=== PATIENT | female | born 1955 | race Caucasian/White ===

== ENCOUNTER 2020-07-22 04:31 | Emergency (ER) | payer MEDICARE ==
[2020-07-22 05:13] LABS: CREATININE 0.7 mg/dL (0.5-1.5); POTASSIUM 4.8 mmol/L (3.5-5.1)
[2020-07-22 05:15] LABS: BASOPHILS % (AUTO) 0.2 % (0.0-5.0); EOSINOPHILS % (AUTO) 0.9 % (0.0-8.0); HEMATOCRIT 40.2 % (36-48); LYMPHOCYTES % (AUTO) 11.4 % (21.0-51.0); MEAN CORPUSCULAR HEMOGLOBIN 30.5 pg (27.0-33.0); MEAN CORPUSCULAR HGB CONC 32.6 g/dL (32.0-36.0); MEAN CORPUSCULAR VOLUME 93.5 fL (79-99); MONOCYTES % (AUTO) 4.8 % (3.0-13.0); NEUTROPHILS % (AUTO) 82.5 % (40.0-77.0); PLATELET COUNT (AUTO) 240 K/uL (130-400); RED CELL DISTRIBUTION WIDTH 12.6 % (11.0-15.5); WHITE BLOOD COUNT (AUTO) 8.5 K/uL (4.8-10.8)
[2020-07-22 05:18] LABS: BILIRUBIN,TOTAL 0.4 mg/dL (0.2-1.0); TOTAL PROTEIN, SERUM 7.5 g/dL (6.0-8.3)
[2020-07-22 05:25] LABS: INR 0.89 (0.85-1.15); PARTIAL THROMBOPLASTIN TIME 23.9 SEC (26.3-35.5); PROTHROMBIN TIME 9.7 SEC (9.6-11.6)
[2020-07-22 05:26] LABS: CREATINE KINASE, TOTAL 116 U/L (21-232); MYOGLOBIN 29 ng/mL (10-92); TROPONIN I < 0.04 ng/mL (0.00-0.06)
[2020-07-22] MEDS ORDERED: MORPHINE SULFATE 5 MG/ML VIAL ONE (05:53)
[2020-07-22] MEDS ORDERED: PROMETHAZINE HCL 25 MG/ML 1ML AMPULE IM ONE (12:00)
== END 2020-07-22 06:58 | disposition home or self-care (01) ==
LOC: EDH 04:31
DX: K80.80 Other cholelithiasis without obstruction (principal)
CPT/HCPCS: 36415; 71045; 76705; 80053; 82550; 83874; 84484; 85025; 85610; 85730; 93005; 96372; 96374; 99285; J2270; J2550

== ENCOUNTER → 2022-06-01 | Outpatient (CLI) | payer MEDICARE ==
[2022-06-01 13:02] LABS: ALBUMIN 3.9 g/dL (3.5-5.0); CREATININE 0.8 mg/dL (0.5-1.5); POTASSIUM 4.4 mmol/L (3.5-5.1); TOTAL PROTEIN, SERUM 7.4 g/dL (6.0-8.3)
== END | disposition home or self-care (01) ==
LOC: LAB 09:38
PROVIDERS: ATTEND Internal Medicine Cardiovascular Disease
DX: E78.5 Hyperlipidemia, unspecified (principal)
CPT/HCPCS: 36415; 80053; 80061

== ENCOUNTER 2024-09-16 06:13 | Emergency (ER) | payer MEDICARE ==
[~2024-09-16] VITALS: Ht 167.6 cm; Wt 76.2 kg
--- NOTE | 2024-09-16 06:31 | NUR ---
PT REACTION TO SEA FOOD IS , GBW, COLD SWEATS, FEVER. DENIES RASH, HIVES, SOB OR BREATHING ISSUES. DENIES ER VISIT AFTER REACTION TO SEA FOOD, OR EPI PEN. PT HAS NEVER HAD IV CONTRAST BEFORE, WAS TOLD DUE TO " ILLNESS" FROM SEA FOOD " NEVER TO HAVE IODINE IN YOU" PER PCP. DR SMITH AWARE
--- NOTE | 2024-09-16 06:43 | ERN ---
General Chief Complaint: Other Problems Stated Complaint: SWELLING TO NECK Time Seen by MD: 06:15 History of Present Illness Initial Comments Mrs Mora is a 69-year-old female with no significant past medical history who presents today with a chief complaint of right neck pain. Patient reports for the last 2 days she has had increased neck swelling. Patient reports she has not neck pain associated with palpation. She does not have any swollen on the left side. Allergies: Coded Allergies: iodine (Unverified Allergy, Unknown, 09/16/24) Uncoded Allergies: SEAFOOD (Allergy, Unknown, 09/16/24) Home Meds Active Scripts Clindamycin HCl (Clindamycin HCl) 300 Mg Capsule, 1 CAP PO QID for 7 Days, #28 C AP 0 Refills Prov:ZAHIDA FLETCHER MD 09/16/24 Past Medical History Past Medical History: High Cholesterol Past Surgical History: Cholecystectomy, Other Surgical History Other: THYROID ROS Dictation Constitutional: Negative for fever,chills, and weight loss Eyes: Negative for injury, pain,redness, and discharge ENT: Right neck swelling Cardiovascular: Negative for chest pain, palpitations, and edema Respiratory: Negative for shortness of breath, cough, and wheezing, Abdomen/GI: Negative for abdominal pain, nausea, vomiting, diarrhea, and constipation Back: Negative for injury and pain : Negative for injury, bleeding and discharge MS/Extremity: Negative for injury and deformity Skin: Negative for rash, and discoloration Neuro: Negative for headache, weakness, numbness, tingling, and seizure Psych: Negative for suicide ideation, homicidal ideation, and hallucinations Physical Exam Physical Exam Dictation General: awake, alert, NAD Head/Face: Normocephalic, atraumatic Eyes: PERRL, EOMI, vision at baseline ENT: Right neck swelling and painful to palpation. Neck: Trachea midline, supple Cardiovascular: RRR, normal S1/S2, No MRGs, no JVD Respiratory: CTAB, no respiratory distress, No rales or wheezes Abdomen: Soft, non-tender, non-distended, Skin: Warm, dry, normal turgor, no rash MS/Extremity: Pulses equal, no cyanosis, Neuro: COAx4, GCS 15, strength 5/5, CN 2-12 intact, Results Laboratory and Microbiology Lab and Micro Result Laboratory Tests Test 09/16/24 06:39 White Blood Count 5.5 K/uL (4.8-10.8) Red Blood Count 4.04 MIL/uL (4.00-5.50) Hemoglobin 13.0 g/dL (12.0-16.0) Hematocrit 38.3 % (36-48) Mean Corpuscular Volume 94.8 fL (79-99) Mean Corpuscular Hemoglobin 32.2 pg (27.0-33.0) Mean Corpuscular Hemoglobin Concent 33.9 g/dL (32.0-36.0) Red Cell Distribution Width 12.2 % (11.0-15.5) Platelet Count 215 K/uL (130-400) Mean Platelet Volume 10.4 fL (7.5-10.5) Immature Granulocyte % (Auto) 0.2 % (0-1) Neutrophils (%) (Auto) 63.6 % (40.0-77.0) Lymphocytes (%) (Auto) 27.0 % (21.0-51.0) Monocytes (%) (Auto) 6.9 % (3.0-13.0) Eosinophils (%) (Auto) 1.8 % (0.0-8.0) Basophils (%) (Auto) 0.5 % (0.0-5.0) Neutrophils # (Auto) 3.5 K/uL (1.8-7.7) Lymphocytes # (Auto) 1.5 K/uL (1.0-4.8) Monocytes # (Auto) 0.4 K/uL (0.1-1.0) Eosinophils # (Auto) 0.10 K/uL (0.00-0.70) Basophils # (Auto) 0.03 K/uL (0.00-0.20) Absolute Immature Granulocyte (auto 0.01 K/uL (0-1) Nucleated Red Blood Cells 0.0 % (0.0-0.19) Sodium Level 146 mmol/L (136-145) H Potassium Level 4.0 mmol/L (3.5-5.1) Chloride Level 109 mmol/L (101-111) Carbon Dioxide Level 33 mmol/L (21-32) H Blood Urea Nitrogen 10 mg/dL (7-18) Creatinine 0.8 mg/dL (0.5-1.0) Glomerular Filtration Rate Calc 79 mL/min (>90) Random Glucose 88 mg/dL (70-105) Total Calcium 8.8 mg/dL (8.5-10.1) Total Bilirubin 0.6 mg/dL (0.2-1.0) Aspartate Amino Transf (AST/SGOT) 16 U/L (10-37) Alanine Aminotransferase (ALT/SGPT) 17 U/L (12-78) Alkaline Phosphatase 81 U/L (50-136) Total Protein 6.5 g/dL (6.0-8.3) Albumin 3.5 g/dL (3.5-5.0) Labs Reviewed?: Yes MDM MDM: Differential diagnosis: Facial cellulitis, submandibular duct obstruction Previous outside records reviewed: Old ER visits. Need for hospitalization: Patient does not meet criteria for hospitalization. Need for emergency major/minor surgery: No Patient's prior external medical records from other ER visits were reviewed by me as indicated. Prior testing and results from previous visits were reviewed. Prior tests were taken into account with medical decision making and resource utilization, independent historian/historians were used to obtain complete medical history. I independently interpreted the test that were performed, results were reviewed by me and considered findings on radiology if ordered. Medical management and examination interpretation discussions were had by me with other qualified healthcare professionals as indicated for the patient's care. ED Course Orders Procedure Category Date Status Time Cbc With Differential LAB 09/16/24 Complete 06:24 Comprehensive LAB 09/16/24 Complete Metabolic Panel 06:24 Zosyn 3.375gm+Ns 50ml PHA 09/16/24 Complete (Zosyn 3.375gm+Ns 06:30 Ct Neck Soft Tiss W/O CT 09/16/24 Resulted Contrast 06:24 Current Medications Medications (Trade) Dose Ordered Sig/Marisela Route PRN Reason Start Time Stop Time Status Last Admin Dose Admin Piperacillin Sod/ Tazobactam Sod (Zosyn 3.375gm+NS 50ml) 3.375 gm ONCE ONCE IVPB 09/16/24 06:30 09/16/24 06:31 DC 09/16/24 07:23 Vital Signs Date Time Temp Pulse Resp B/P (MAP) Pulse Ox O2 Delivery O2 Flow Rate FiO2 09/16/24 09:54 98.4 64 16 133/70 98 Room Air* 0 21 09/16/24 07:31 98.6 69 20 138/68 100 Room Air* 0 21 09/16/24 06:26 98.6 66 20 138/66 100 Room Air* 0 21 09/16/24 06:14 97.5 61 20 138/79 97 Room Air DX & DISP Disposition: Discharge Departure Impression: Primary Impression: Submandibular duct obstruction Additional Impression: Facial cellulitis Condition: Stable Scripts Clindamycin HCl (Clindamycin HCl) 300 Mg Capsule 1 CAP PO QID for 7 Days, #28 CAP 0 Refills Prov: ZAHIDA FLETCHER MD 09/16/24 Referrals: CHIOMA SEVILLA MD (PCP) LEONEL YARBROUGH JOSE M MD Sep 16, 2024 06:43 ZAHIDA FLETCHER MD Sep 16, 2024 09:40
[2024-09-16 06:59] LABS: BASOPHILS # (AUTO) 0.03 K/uL (0.00-0.20); BASOPHILS % (AUTO) 0.5 % (0.0-5.0); EOSINOPHILS % (AUTO) 1.8 % (0.0-8.0); HEMATOCRIT 38.3 % (36-48); IMMATURE GRANULOCYTE ABSOLUTE 0.01 K/uL (0-1); LYMPHOCYTES # (AUTO) 1.5 K/uL (1.0-4.8); MEAN CORPUSCULAR HEMOGLOBIN 32.2 pg (27.0-33.0); MEAN CORPUSCULAR HGB CONC 33.9 g/dL (32.0-36.0); MEAN CORPUSCULAR VOLUME 94.8 fL (79-99); MONOCYTES # (AUTO) 0.4 K/uL (0.1-1.0); MONOCYTES % (AUTO) 6.9 % (3.0-13.0); NEUTROPHILS # (AUTO) 3.5 K/uL (1.8-7.7); NEUTROPHILS % (AUTO) 63.6 % (40.0-77.0); PLATELET COUNT (AUTO) 215 K/uL (130-400); RED BLOOD CELL COUNT(AUTO) 4.04 MIL/uL (4.00-5.50); RED CELL DISTRIBUTION WIDTH 12.2 % (11.0-15.5); WHITE BLOOD COUNT (AUTO) 5.5 K/uL (4.8-10.8)
[2024-09-16 07:11] LABS: ALBUMIN 3.5 g/dL (3.5-5.0); BILIRUBIN,TOTAL 0.6 mg/dL (0.2-1.0); CREATININE 0.8 mg/dL (0.5-1.0); TOTAL PROTEIN, SERUM 6.5 g/dL (6.0-8.3)
[2024-09-16] MEDS: ZOSYN 3.375GM +NS 50ML IVPB ONE (07:23)
--- NOTE | 2024-09-16 08:36 | HMCIMG ---
CT NECK SOFT TISS W/O CONTRAST REASON: right neck swelling over the last two days(w/o per md dr alfaro) COMPARISON: None TECHNIQUE: Routine imaging protocol was performed from skull base to through the thoracic inlet. Coronal and sagittal reconstruction images were then performed. Exam is significantly limited due to the absence of IV contrast. FINDINGS: The right submandibular gland is swollen and edematous. There is adjacent inflammation. Findings are consistent with infection. There is no focal fluid collection to suggest abscess. There is a 3 mm calcification in the soft tissues medial to the mandible, in the expected location of the right submandibular salivary gland duct M appearance consistent with a stone. The left submandibular gland appears normal as do both parotid glands. Paranasal sinuses are clear. Tongue, tonsillar fossa and parapharyngeal soft tissues are unremarkable. There is no lymphadenopathy. Left lobe of the thyroid has been resected, the right lobe appears unremarkable. Larynx, trachea and lung apices appear normal. There is extensive coarse calcification in the right carotid bifurcation, nonvisible on the left. Carotid Doppler ultrasound may be helpful for further evaluation. IMPRESSION: 1. Findings consistent with a 3 mm stone in the midportion of the right submandibular salivary gland duct. 2. The right submandibular gland is swollen and edematous, this could be due to ductal obstruction but could also represent superimposed infection, there is no evidence of abscess. 3. Coarse calcification in the region of the carotid bifurcation, carotid Doppler ultrasound may be helpful for further evaluation.
[2024-09-16] MEDS ORDERED: CLIN-141 PO (09:40)
[2024-09-16 09:54] VITALS: BP 133/70; PULSE 64; RESP 16; TEMP 98.4; O2SAT 98
== END 2024-09-16 10:00 | disposition home or self-care (01) ==
LOC: EDH 06:13
DX: K11.8 Other diseases of salivary glands (principal); L03.211 Cellulitis of face; E78.00 Pure hypercholesterolemia, unspecified; Z88.8 Allergy status to other drugs, medicaments and biological substances; Z90.49 Acquired absence of other specified parts of digestive tract; Z91.041 Radiographic dye allergy status
CPT/HCPCS: 99285; 96365; 70490; 96366; 80053; 85025; 36415; J2543